=== PATIENT | male | born 1950 | race Caucasian/White ===

== ENCOUNTER 2017-02-28 08:25 | Day surgery (SDC) | payer MEDICARE, BC ==
[~2017-02-28] VITALS: Ht 188 cm; Wt 118.6 kg
[2017-02-28] VITALS (13 sets, daily range): BP systolic 94–131; BP diastolic 61–87; PULSE 51–63; TEMP 97.6
[2017-02-28] MEDS ORDERED: NEURONTIN300 MG/CAP PO (09:17)
[2017-02-28 09:18] LABS: HEMATOCRIT 40.4 % (42.0-52.0); HEMOGLOBIN 13.7 g/dl (13.5-18.0); MEAN CELL VOLUME 89 fl (80.0-100.0); MEAN CORPUSCULAR HEMOGLOBIN 30 pg (27.0-31.0); MEAN CORPUSCULAR HGB CONC 34 g/dl (33.0-37.0); MEAN PLATELET VOLUME 11.6 fl (7.4-10.4); PLATELET COUNT 172 K/mm3 (130-400); RED BLOOD COUNT 4.56 M/mm3 (4.20-5.60); REDCELL DISTRIBUTION WIDTH-CV 14.3 % (11.5-14.5); WHITE BLOOD COUNT 7.5 K/mm3 (4.8-10.8)
[2017-02-28] MEDS ORDERED: PERCOCET 325 MG1 TA2 PO (09:18)
[2017-02-28] MEDS ORDERED: LOPRESSOR 550 MG/TAB PO (09:19)
[2017-02-28] MEDS ORDERED: EFFEXOR 75M75 MG/TAB PO (09:21)
[2017-02-28] MEDS ORDERED: CLARITIN 1010 MG/TAB PO (09:22)
[2017-02-28] MEDS ORDERED: JANUVIA50 MG PO (09:22)
[2017-02-28] MEDS ORDERED: NORVASC 10MG10 MG PO (09:23)
[2017-02-28] MEDS ORDERED: REMERON30 MG PO (09:24)
[2017-02-28] MEDS ORDERED: BENICAR 20MG TA20 MG PO (09:24)
[2017-02-28] MEDS ORDERED: AMBIEN CR 12.12.5 MG PO (09:25)
[2017-02-28] MEDS ORDERED: PLAVIX 75MG TAB75 MG PO (09:27)
[2017-02-28] MEDS ORDERED: STOOL SOFTENER100 M2 PO (09:28)
[2017-02-28 09:30] LABS: CALCIUM 8.8 mg/dL (8.4-10.2); CREATININE, serum 1.09 mg/dL (0.66-1.25); POTASSIUM 4.4 mmol/L (3.4-5.0)
[2017-02-28 09:35] LABS: PROTHROMBIN TIME 11.5 SECONDS (9.7-12.8)
[2017-02-28] MEDS ORDERED: RANEXA 500MG T500 MG PO (14:32)
[2017-02-28] MEDS ORDERED: NITRO-DUR0.4 MG/PAT TD (14:32)
== END 2017-02-28 16:07 | disposition home or self-care (01) ==
LOC: COL.CAR 08:25
PROVIDERS: Internal Medicine Cardiovascular Disease
DX: I25.10 Atherosclerotic heart disease of native coronary artery without angina pectoris (principal); I25.82 Chronic total occlusion of coronary artery; I25.2 Old myocardial infarction; E11.9 Type 2 diabetes mellitus without complications; I10 Essential (primary) hypertension; G47.30 Sleep apnea, unspecified; Z95.5 Presence of coronary angioplasty implant and graft; Z95.1 Presence of aortocoronary bypass graft
CPT/HCPCS: C1760; J2250; J3010; Q9967